=== PATIENT | male | born 1945 | race African-American/Black ===

== ENCOUNTER 2020-07-01 21:08 | Inpatient (IN) | payer OTHER ==
[~2020-07-01] VITALS: Ht 188 cm; Wt 127.0 kg
[2020-07-01 21:08] VITALS: BP 103/56
[~2020-07-01 21:08] MED LIST: ADVIL100 M3 PO; ASPIRIN81 M2 PO; COZAAR100 MG PO; GLUCOPHAGE1000 MG PO; HYDROCHLOROTHIA25 M1 PO; IRON325 PO; LANTUS SUBQ; LOPRESSOR100 MG PO; MULTI VITAMIN1 EACH PO; NOVOLOG100 UNIT/1 SQ; PERCOCET 5-3251 EACH PO; VERAPAMIL HCL 880 M1 PO
[2020-07-01 21:28] LABS: ABSOLUTE NEUTROPHILS 9.3 thou/uL (1.4-8.2); BASOPHILS 0.1 % (0.0-2.0); HEMATOCRIT 33.4 % (42.0-52.0); HEMOGLOBIN 10.6 gm/dL (14.0-18.0); LYMPHOCYTES 3.8 % (24.0-44.0); MCH 28.1 pg (26.0-34.0); MCHC 31.6 g/dL (28.0-37.0); MCV 88.8 fL (80.0-100.0); PLATELET COUNT 180 thou/uL (150-400); POLYS 90.1 % (36.0-66.0); RBC 3.76 mil/uL (4.50-6.00); RDW 20.8 % (10.5-14.5); WBC 10.3 thou/uL (4.0-11.0)
[2020-07-01 21:34] LABS: CALCIUM 8.5 mg/dL (8.5-10.1); CREATININE 3.4 mg/dL (0.7-1.3); POTASSIUM 5.4 mmol/L (3.5-5.1)
[2020-07-01 22:04] LABS: URINE BILIRUBIN 1+ (Negative); URINE BLOOD 3+ (Negative); URINE CLARITY CLOUDY; URINE COLOR YELLOW; URINE GLUCOSE-RANDOM* NEGATIVE (Negative); URINE KETONES TRACE (Negative); URINE NITRITE-REFLEX NEGATIVE (Negative); URINE PROTEIN (DIPSTICK) 1+ (Negative)
[2020-07-01 22:05] LABS: URINE LEUKOCYTES-REFLEX 2+ (Negative)
[2020-07-01 22:22] LABS: BACTERIA-REFLEX >30 Many /HPF (None Seen); CASTS None Seen /LPF (None Seen); CRYSTALS None Seen /LPF (None Seen); MUCUS 4-6 Moderate strn/LPF (None Seen); SQUAMOUS 0-3 Few /LPF (0-3); URINE RBC >20 Many /HPF (NONE SEEN); URINE WBC-REFLEX >25 Many /HPF (0-5); WBC CLUMPS Packed (None Seen)
[2020-07-01 23:14] VITALS: BP 103/56
[2020-07-01 23:52] VITALS: BP 122/59
--- NOTE | 2020-07-02 00:12 | NUR ---
PT ADMITTED TO THE UNIT AT 0005. PT IS A/O X3 AND IS ON BED REST. ROOM AIR. VSS. AFEBRILE. NO C/O PAIN OR DISCOMFORT AT THIS TIME. BS WNL. FALL PRECAUTIONS IN PLACE, CALL LIGHT IS WITHIN REACH. WILL CONTINUE TO MONITOR.
[2020-07-02] MEDS ORDERED: PROTONIX 20 MG20 M1 PO (01:09)
[2020-07-02] MEDS ORDERED: NORVASC10 MG PO (01:09)
[2020-07-02] MEDS ORDERED: LIPITOR 20 MG T20 M1 PO (01:09)
[2020-07-02] MEDS ORDERED: ASPIRIN-DIPYRI1 EACH PO (01:10)
[2020-07-02] MEDS ORDERED: LOPRESSOR50 MG PO (01:11)
[2020-07-02] MEDS ORDERED: CHLORTHALIDONE25 MG PO (01:12)
[2020-07-02] MEDS ORDERED: PERCOCET 7.5-31 EACH PO (01:13)
[2020-07-02 05:55] LABS: CREATININE 3.2 mg/dL (0.7-1.3)
[2020-07-02 06:05] LABS: POTASSIUM 5.3 mmol/L (3.5-5.1)
[2020-07-02 06:09] LABS: HEMATOCRIT 30.7 % (42.0-52.0); HEMOGLOBIN 9.6 gm/dL (14.0-18.0); MCH 27.4 pg (26.0-34.0); MCHC 31.3 g/dL (28.0-37.0); MCV 87.5 fL (80.0-100.0); RBC 3.51 mil/uL (4.50-6.00); RDW 20.3 % (10.5-14.5); WBC 11.8 thou/uL (4.0-11.0)
[2020-07-02 07:53] VITALS: BP 129/68
--- NOTE | 2020-07-02 11:44 | NUR ---
PT ADMITTED RELATED TO UTI, DEHYDRATION, HYPOGLYCEMIA,ARF. CM REVIEWED CHART AND SPOKE WITH CARE TEAM. CM MET WITH PT AND DTR CHRISTA AT BEDSIDE THIS DAY. PT APPEARED TO BE A&O X4. CM ROLE INTRODUCED. PT AND DTR INDICATED THAT [facility] . PT HAS HCBS THROUGH MEDICARE THROUGH [employer]. 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 PT INDICATED HE HAD HOME HEALTH IN THE PAST ARRANGED BY [facility] BUT CAN'T RECALL PROVIDER. PT AND DTR INDICATED THAT PLAN IS FOR PT TO RETURN HOME WITH SPOUSE AND HCBS CAREGIVER ONCE MEDICALLY STABLE. CARE TEAM INDICATED PT MAY BE MEDICALLY STABLE TO DC TOMORROW. CM FOLLOWING REGARDING DC PLANNING.
--- NOTE | 2020-07-02 14:45 | NUR ---
ASSUMED CARE OF PT AT 0700 THIS MORNING. PT WAS ADMITTED FOR DEHYDRATION AND UTI. PT ALSO HAD HYPOGLYCEMIC EPISODES YESTERDAY. PT IS A/OX4, EYES PERRLA AND RIGHT SIDED WEAKNESS DUE TO HX CVA. SKIN INTACT W/D AND APPROPRIATE TO RACE. NO SKIN TENTING NOTED. LUNGS ARE CLEAR IN ALL CORBIN, DISTAL PULSES ARE PRESENT AND CR<3SEC X4. IV IN LEFT AC WITH NS AT 80ML/HR. ABD SOFT, NONTENDER WITH ACTIVE BOWEL SOUNDS. BLOOD SUGARS HAVE MAINTAINED LOW 100'S. ASSESSMENTS OTHERWISE UNREMARKABLE. CALL LIGHT AND OTHER NEEDS ARE PLACED IN REACH. MEDS AND K2FPIBJ PERFORMED ACHEDULED.
[2020-07-02 15:20] VITALS: BP 117/70
[2020-07-02 20:07] VITALS: BP 122/65
--- NOTE | 2020-07-03 02:25 | NUR ---
PT CARE ASSUMED AT 1900 WITH PT IN BED WATCHING TV.PT IS A/O X4.PT IS ON BEDREST .PT IS A TRAY SET UP FOR MEALS .PT IS ACCUCHECK ACHS WITH NO SSI.PT IS HAS RT SIDED HEMIPAREIS AND LEFT FACIAL DROOP.PT IS A TOTAL CARE AND Q2 TURN.PT C/O PAIN AND PAIN MANAGED WITH SCHEDULED TYLENOL AND PERCOCET.IV ACCESS ON LT AC.PT IS INCONTINENT.WILL CONTINUE TO MONITOR
[2020-07-03 06:10] LABS: ALBUMIN 2.6 g/dL (3.4-5.0); CALCIUM 8.5 mg/dL (8.5-10.1); CREATININE 2.4 mg/dL (0.7-1.3); PHOSPHORUS 2.8 mg/dL (2.5-4.9); POTASSIUM 4.5 mmol/L (3.5-5.1)
[2020-07-03 07:24] VITALS: BP 137/64
--- NOTE | 2020-07-03 11:57 | NUR ---
ASSUMED PT CARE AROUND 0700. PT ALERT X ORIENTED X 3-4, SOMETIMES FORGETFUL. ON ROOM AIR. INCONTINENCE OF BOWEL AND BLADDER. IV LF WRIST. Q X 2 TURN. SET UP FOR MEAL TRAY. PT REFUSED BREAKFAST TODAY MORNING HE DIDN'T LIKE THE BREAKFAST PROVIDED. HE ATE HALF OF THE DONUT HIS BROUGHT. ACCUCHECK AND ACHS. PT'S FAMILY WAS COCERNED ABOUT PT'S BOWEL MOVEMENT HIS LBM WAS [address] AGO[address] RN LET DR. BURCIAGA KNOW ABOUT IT ([phone]). FALL PRECAUTION IN PLACE. CALL LIGHT IN REACH. AT BEDSIDE. WILL CONTINUE TO MONITOR.
[2020-07-03 15:36] VITALS: BP 136/71
--- NOTE | 2020-07-03 16:13 | NUR ---
CM FOLLOWED UP WITH PT AT BEDSIDE THIS DAY. CARE TEAM INDICATING POSSIBLE DC HOME TOMORROW WITH HH SERVICES. PT IS AGREEABLE AND INDICATED NO PREFERENCE FOR PROVIDERS. CM FAXED REFERRAL TO [facility]. PT AND OT TO EVAL TOMORROW AND CM TO FAX EVALS IN THE AM. CM TO FOLLOW INDICATED WITH DC PLANNING.
[2020-07-03 20:08] VITALS: BP 140/72
--- NOTE | 2020-07-04 04:23 | NUR ---
report recieved on pt.no c/o pain or discomfort. iv infusing w/o difficulties. prn given x1 thru noc effective . pt currently in bed with eyes closed call light in reach. will continue to monitor.
[2020-07-04 06:19] LABS: ALBUMIN 2.6 g/dL (3.4-5.0); CALCIUM 8.8 mg/dL (8.5-10.1); CREATININE 1.8 mg/dL (0.7-1.3); PHOSPHORUS 2.1 mg/dL (2.6-4.7)
[2020-07-04 08:23] VITALS: BP 154/78
--- NOTE | 2020-07-04 08:46 | NUR ---
OT SPOKE WITH PT. THIS AM 0750. EXPLAINED ROLE OF OT AND PT. IS DECLINING OT SERVICES, STATES HIS STROKE WAS APPROX 22 YEARS AGO AND HE DOES NOT WANT THERAPY. HAS CAREGIVER 7 DAYS A WEEK FOR ALL ADLS, SETUP FOR GROOMING AND FEEDING AND NEEDS 1 PERSON ASSIST FOR TRANSFERS AT BASELINE. USES POWER W/C FOR MOBILITY AND ONLY SPONGEBATHES. OT NOTIFIES PT. TO SPEAK WITH DOC OR NURSING IF HE CHANGES HIS MIND AND WOULD LIKE TO PARTICIPATE IN OT SERVICES. PT. REPORTS HE IS AT BASELINE. OT SIGNING OFF.
[2020-07-04 10:42] VITALS: BP 153/78
[2020-07-04] MEDS ORDERED: LANTUS SUBQ (11:29)
[2020-07-04] MEDS ORDERED: STIMULANT LAXA1 EACH PO (11:29)
[2020-07-04] MEDS ORDERED: MIRALAX119 GM PO (11:29)
[2020-07-04] MEDS ORDERED: KEFLEX750 MG PO (11:33)
--- NOTE | 2020-07-04 12:04 | NUR ---
CARE TEAM INDICATED THAT PT IS MEDICALLY STABLE TO DC HOME THIS DAY. CM NOTIFIED PT AND SPOUSE. THEY ARE AWARE AND AGREEABLE. THEY INDICATED THEY NEEDED TRANSPORT HOME THIS DAY. CM SET UP [facility] TRANSPORT THROUGH [employer] ([employer]) TRIP#[id number] TECHNOLOGY PROFESSIONAL BETWEEN 12:01-3:01. CM NOTIFIED PT AND SPOUSE. PT TO DC HOME TO SELF CARE. PT HAS ALL NEEDED DME. CASE CLOSED.
--- NOTE | 2020-07-04 13:17 | NUR ---
ASSUMED CARE OF PT AT 0700 THIS MORNING. PT WAS ADMITTED FOR UTI AND DEHYDRATION. PT HAS BEEN A/OX4, EYES PERRLA, LUNGS CLEAR ALL CORBIN, SKIN INTACT WITH NO TEHNTING. W/D/APPROPRIATE TO RACE. ASSESSMENTS OTHERWISE UNREMARKABLE. PT DOES HAVE RIGHT SIDED WEAKNESS DUE TO CVA 12 YEARS AGO. CALL LIGHT AND OTHER NEEDS ARE PLACED IN REACH. PT IS BEING DISCHARGED THIS AFTERNOON. WAITING FOR [facility] TO ARRIVE BETWEEN 1200 AND 1500 TODAY,
--- NOTE | 2020-07-05 09:45 | NUR ---
BPCI letter provided to patient, provided preferred provider list, lives in home setting
--- NOTE | 2020-07-10 06:01 | HC ---
[facility] [place] [place] [address] [place] [address] CONSULTATION Name: ADELINE LOVING Room #: 452-P [facility] IN M.R.#: [id number] Admission: 07/01/20 Attend Phys: Julien Hennessy MD Discharge: 07/04/20 Date of : 43 Report #: [id number] THIS REPORT FOR: cc: TAN SAMS DO Physician not on staff Michael Mtz MD ~ DOC #: [id number] Michael Mtz MD DATE OF SERVICE: 07/02/2020 REASON FOR CONSULTATION: Elevated creatinine. REASON FOR THE PRESENTATION: Altered mental status with hypoglycemia. HISTORY OF PRESENT ILLNESS: Obtained from the medical chart. The patient has very poor knowledge about his medical issues. He has history of cerebrovascular accident with right-sided hemiparesis complicated by dysphagia. He presented after his called the EMS because he was not breathing. However, the patient was found to have a blood glucose of 31. Apparently, the patient carries a diagnosis of diabetes mellitus and hypertension. On arrival to the emergency room, the patient's creatinine was found to be 3.4 and has trended down to 3.2. Unfortunately, we do not have any recent laboratory values on the patient. His most recent creatinine dates back to almost 7 years ago and at that time it was within the normal range. The patient was admitted to the hospital to further evaluate his condition. He denies any urological symptoms. However, I am not really sure how accurate is that given the patient's current mental status. REVIEW OF SYSTEMS: Unobtainable given the patient's current mental status. CURRENT MEDICATIONS: 1. Iron. 2. Atorvastatin. 3. Metoprolol. 4. Amlodipine. 5. Verapamil. 6. Losartan. 7. Chlorthalidone. 8. Metformin. 9. Insulin. ALLERGIES: None. PAST MEDICAL HISTORY: Obtained from the medical chart. 1. Diabetes mellitus. 2. Hypertension. [facility] [address] [place] [address] CONSULTATION Name: ADELINE LOVING Room #: [address] [place] [address] [place] [facility].#: [id number] Admission: 07/01/20 Attend Phys: Julien Hennessy MD Discharge: 07/04/20 Date of : 43 Report #: [id number] 3. Hyperlipidemia. 4. History of cerebrovascular accident complicated by dysphagia and right hemiparesis. FAMILY HISTORY: Unobtainable given the patient's current mental status. SOCIAL HISTORY: Lives with his . No drug or alcohol abuse. PHYSICAL EXAMINATION: GENERAL: Awake, confused. VITAL SIGNS: Blood pressure 122/59, temperature 36.1, pulse rate 69. HEAD AND NECK: No jugular venous distention, no bruit, no thyromegaly. CHEST: No crackles. CARDIOVASCULAR: Regular with no rub. ABDOMEN: Soft, nontender. LOWER EXTREMITIES: Chronic venous stasis changes. LABORATORY DATA: Reviewed. White blood cell count is 11.8, platelet is 190. Sodium is 140, potassium is 5.3, chloride is 110, carbon dioxide is 13. BUN is 83. Creatinine is 3.2. ASSESSMENT, IMPRESSION AND PLAN: 1. Acute kidney injury due to hypotension, poor oral intake. 2. Metabolic acidosis, likely due to metformin. 3. Diabetes mellitus with hypoglycemia, on presentation. 4. History of hypertension, maintained on numerous blood pressure medications, now with hypotension. 5. History of cerebrovascular accident. 6. The patient's acute kidney injury seems to be related to prerenal condition. 7. His metabolic acidosis is related to metformin. 8. Discontinue all blood pressure medication. 9. Discontinue metformin. 10. Start on bicarbonate drip. 11. Follow daily renal function panel. 12. Follow urine output. 13. Avoid nephrotoxins. 14. We will continue to follow during his hospital stay. Michale Mtz MD [facility] [address] [address] CONSULTATION Name: ADELINE LOVING Room #: 452-P [facility] [place] .R.#: [id number] Admission: 07/01/20 Attend Phys: Julien Hennessy MD Discharge: 07/04/20 Date of : 43 Report #: [id number] <ELECTRONICALLY SIGNED> By: Michael Mtz MD 07/10/20 06 06 13 Michael Mtz MD /nt
== END 2020-07-04 17:47 | disposition home or self-care (01) | DRG 637 ==
LOC: ER 21:08 → 4W 22:34 → EROBS 22:34 → 4W 23:49
PROVIDERS: Hospitalist; Nurse Practitioner; ADMIT Hospitalist; ATTEND Hospitalist
DX: E11.649 Type 2 diabetes mellitus with hypoglycemia without coma (principal); E43 Unspecified severe protein-calorie malnutrition; N39.0 Urinary tract infection, site not specified; E87.2 Acidosis; I69.351 Hemiplegia and hemiparesis following cerebral infarction affecting right dominant side; N17.0 Acute kidney failure with tubular necrosis; E86.0 Dehydration; I10 Essential (primary) hypertension; E78.5 Hyperlipidemia, unspecified; I95.9 Hypotension, unspecified; K21.9 Gastro-esophageal reflux disease without esophagitis; E11.42 Type 2 diabetes mellitus with diabetic polyneuropathy; E87.5 Hyperkalemia; B96.4 Proteus (mirabilis) (morganii) as the cause of diseases classified elsewhere; D50.0 Iron deficiency anemia secondary to blood loss (chronic); I69.392 Facial weakness following cerebral infarction
CPT/HCPCS: 10040